=== PATIENT | male | born 1995 | race Two or more races ===

== ENCOUNTER 2018-07-18 00:34 | Emergency (ER) | payer SELFPAY ==
[~2018-07-18] VITALS: Ht 170.2 cm; Wt 68.0 kg
[2018-07-18] MEDS ORDERED: ZIPRASIDONE 20 MG INJ IM ONE ×2 (00:41→01:00)
[2018-07-18] MEDS ORDERED: SODIUM CHLORIDE 0.9% 1,000 ML IV ONE (00:41)
[2018-07-18 01:19] LABS: BASOPHILS # (AUTO) 0.02 x10^3/uL (0-0.1); BASOPHILS % (AUTO) 0 % (0-1); EOSINOPHILS # (AUTO) 0.12 x10^3/uL (0-0.4); EOSINOPHILS % (AUTO) 2 % (1-7); LYMPHOCYTES # (AUTO) 1.95 x10^3/uL (1-3.4); LYMPHOCYTES % (AUTO) 28 % (22-44); MD NO; MEAN CORPUSCULAR HEMOGLOBIN 31.1 pg (27.5-34.5); MEAN CORPUSCULAR HGB CONC 35.7 g/dL (33.2-36.2); MEAN CORPUSCULAR VOLUME 87.2 fL (81-97); MEAN PLATELET VOLUME 7.1 fL (7.4-10.4); MONOCYTES # (AUTO) 0.27 x10^3/uL (0.2-0.8); MONOCYTES % (AUTO) 4 % (2-9); NEUTROPHILS # (AUTO) 4.52 x10^3/uL (1.8-6.8); NEUTROPHILS % (AUTO) 66 % (42-75); PLATELET COUNT 375 x10^3/uL (130-400); RED BLOOD COUNT 5.61 x10^6/uL (4.38-5.82); RED CELL DISTRIBUTION WIDTH 12.8 % (9.4-14.8)
[2018-07-18 01:26] LABS: ALBUMIN 4.2 g/dL (3.4-5.0); ANION GAP 16 mmol/L (5-15); CALCIUM 7.3 mg/dL (8.5-10.1); CHLORIDE 112 mmol/L (98-107); CREATININE 1.11 mg/dL (0.7-1.3)
[2018-07-18 01:38] LABS: ACETAMINOPHEN < 2 mcg/mL (10-30); SALICYLATE LEVEL < 1.7 mg/dL (2.8-20.0)
[2018-07-18 06:52] VITALS: BP 92/44
== END 2018-07-18 06:54 | disposition home or self-care (01) ==
LOC: ED 01:03
DX: G31.2 Degeneration of nervous system due to alcohol (principal); F10.229 Alcohol dependence with intoxication, unspecified; F41.9 Anxiety disorder, unspecified; F19.94 Other psychoactive substance use, unspecified with psychoactive substance-induced mood disorder; F10.232 Alcohol dependence with withdrawal with perceptual disturbance; Y90.9 Presence of alcohol in blood, level not specified
CPT/HCPCS: 36415; 80048; 80307; 80329; 82040; 85025; 96360; 96372; 99284; J3486; J7030; G0480